=== PATIENT | female | born 1985 | race Caucasian/White ===

== ENCOUNTER 2021-03-29 14:29 | Outpatient (CLI) | payer OTHER | END 2021-03-29 14:30 | disposition home or self-care (01) | LOC: NAV RAD 14:29 | PROVIDERS: ATTEND Internal Medicine | DX: R05 Cough (principal) | CPT/HCPCS: 71046 ==

== ENCOUNTER 2021-07-15 17:41 | Outpatient (CLI) | payer OTHER | END 2021-07-15 17:42 | disposition home or self-care (01) | LOC: NAV RAD 17:41 | PROVIDERS: ATTEND Internal Medicine | DX: M79.672 Pain in left foot (principal) ==